=== PATIENT | male | born 1960 | race African-American/Black ===

== ENCOUNTER 2020-04-20 00:55 | Emergency (ER) | payer SELFPAY ==
[~2020-04-20] VITALS: Ht 177.8 cm; Wt 104.0 kg
[~2020-04-20 00:55] MED LIST: METF-415 PO
[2020-04-20 03:22] LABS: EOSINOPHILS % 3.6 % (0.0-5.0); HEMATOCRIT. 39.6 % (42.0-52.0); HEMOGLOBIN. 13.2 g/dL (14.0-18.0); LYMPHOCYTES % 28.7 % (20.0-50.0); MEAN CORPUSCULAR HEMOGLOBIN 28.6 pg (28.0-32.0); MEAN PLATELET VOLUME 8.4 fl (7.4-10.4); MONOCYTES % 8.4 % (2.0-8.0); NEUTROPHILS % 58.3 % (40.0-76.0); PLATELET 255 x1000/uL (130-400)
[2020-04-20 03:30] LABS: CHLORIDE 103 mEq/L (98-107)
[2020-04-20 05:58] VITALS: BP 150/85
== END 2020-04-20 05:59 | disposition home or self-care (01) ==
LOC: ER 00:55
DX: R00.2 Palpitations (principal); E78.00 Pure hypercholesterolemia, unspecified; E11.9 Type 2 diabetes mellitus without complications; I10 Essential (primary) hypertension; Z79.84 Long term (current) use of oral hypoglycemic drugs
CPT/HCPCS: 36415; 71045; 80053; 83880; 84484; 85025; 93005; 99285

== ENCOUNTER 2021-12-24 21:03 | Inpatient (IN) | payer SELFPAY ==
[~2021-12-24] VITALS: Ht 175.3 cm; Wt 105.3 kg
[2021-12-24] MEDS ORDERED: MORPHINE SULFATE 4 MG/ML CPJ (NOT FOR IM USE) IV ONE (23:45)
[2021-12-24] MEDS ORDERED: ASPIRIN 325MG EC TABLET PO ONE (23:45)
[2021-12-24] MEDS ORDERED: ONDANSETRON HCL 4MG/2ML INJ IV ONE (23:45)
[2021-12-25 00:24] LABS: EOSINOPHILS % 1.9 % (0.0-5.0); HEMATOCRIT. 36.2 % (42.0-52.0); HEMOGLOBIN. 12.2 g/dL (14.0-18.0); LYMPHOCYTES % 25.3 % (20.0-50.0); MEAN CORPUSCULAR HEMOGLOBIN 27.8 pg (28.0-32.0); MEAN CORPUSCULAR VOLUME 82.7 fL (80.0-94.0); MEAN PLATELET VOLUME 7.8 fl (7.4-10.4); NEUTROPHILS % 64.8 % (40.0-76.0); PLATELET 379 x1000/uL (130-400); RED BLOOD CELL COUNT 4.38 mill/uL (4.7-6.1); RED CELL DISTRIBUTION WIDTH 13.7 % (11.6-14.6)
[2021-12-25] MEDS ORDERED: ASPIRIN 325MG EC TABLET PO NR (00:26)
[2021-12-25 00:28] LABS: CHLORIDE 100 mEq/L (98-107)
[2021-12-25 00:58] LABS: D-DIMER 1.01 mg/L FEU (<0.50); PARTIAL THROMBOPLASTIN TIME 29.9 sec (23.4-31.0)
[2021-12-25] MEDS ORDERED: HEPARIN 25,000 UNITS PREMIX 250 ML IV SCH ×2 (01:00→01:30)
[2021-12-25] MEDS ORDERED: HEPARIN BOLUS PRN aPTT 30-44 IV (01:30)
[2021-12-25] MEDS ORDERED: HEPARIN 60 UNITS/KG BOLUS IV SCH (01:30)
[2021-12-25] MEDS ORDERED: HEPARIN BOLUS PRN aPTT <30 IV (01:30)
[2021-12-25] MEDS ORDERED: HEPARIN 25,000 UNITS in DEXT 5% WATER 245 ML IV SCH (02:00)
[2021-12-25 13:30] VITALS: BP 113/58
[2021-12-25 16:41] VITALS: BP 120/69
[2021-12-25] MEDS ORDERED: ENOXAPARIN 120MG/0.8ML SYR SUBCUT SCH (17:00)
== END 2021-12-25 17:40 | disposition short-term general hospital (02) | DRG 194 ==
LOC: ER 21:03 → 6WST 12-25 05:05
PROVIDERS: ADMIT Internal Medicine; ATTEND Internal Medicine
DX: I11.0 Hypertensive heart disease with heart failure (principal); E11.9 Type 2 diabetes mellitus without complications; E78.5 Hyperlipidemia, unspecified; I50.9 Heart failure, unspecified; E78.00 Pure hypercholesterolemia, unspecified; Z82.49 Family history of ischemic heart disease and other diseases of the circulatory system
CPT/HCPCS: 36415; 71045; 71275; 80053; 82962; 83880; 84484; 85025; 85379; 93005; 93970; 99285; J1644; J1650; J2270; J2405; J7060